=== PATIENT | female | born 1980 | race Caucasian/White ===

== ENCOUNTER 2023-08-02 20:23 | Emergency (ER) | payer MEDICAID, OTHER ==
[~2023-08-02] VITALS: Ht 157.5 cm; Wt 90.7 kg
[2023-08-02 20:30] VITALS: PULSE 89; RESP 17; TEMP 98; O2SAT 98
[2023-08-02] MEDS ORDERED: KETOROLAC 60 MG/2 ML VIAL IM ONE (20:50)
[2023-08-02] MEDS ORDERED: MORPHINE SULFATE 4 MG/ML SYR ONE (21:20)
[2023-08-02] MEDS: MORPHINE SULFATE 4 MG/ML SYR IVP ONE ×3 (21:27→22:25)
[2023-08-02] MEDS: PROPOFOL 200 MG/20 ML VIAL IV ONE ×2 (21:41→22:52)
[2023-08-02] MEDS ORDERED: ACET-503 PO (22:28)
[2023-08-02] MEDS ORDERED: IBUP-2213 PO (22:28)
[2023-08-02 23:05] VITALS: BP 145/75; PULSE 86; RESP 17; TEMP 98; O2SAT 100
== END 2023-08-02 23:05 | disposition home or self-care (01) ==
LOC: MED 20:23
DX: S43.085A Other dislocation of left shoulder joint, initial encounter (principal); F17.200 Nicotine dependence, unspecified, uncomplicated; Z79.899 Other long term (current) drug therapy; Z72.89 Other problems related to lifestyle; W18.30XA Fall on same level, unspecified, initial encounter; Y93.89 Activity, other specified; Y92.89 Other specified places as the place of occurrence of the external cause; Y99.8 Other external cause status
CPT/HCPCS: 23650; 73020; 73070; 73090; 96374; 99285; G0500; J2270; J2704; Q0092; 96376